=== PATIENT | female | born 1980 | race Two or more races ===

== ENCOUNTER 2018-08-16 15:30 | Emergency (ER) | payer OTHER ==
[2018-08-16] MEDS ORDERED: Ketorolac 30 MG/ML SDV IVPUSH ONE (16:50)
[2018-08-16] MEDS ORDERED: Sodium Chloride 0.9% 1,000 ML IV ONE (16:50)
--- NOTE | 2018-08-16 16:52 | EDM.PDOC ---
ED HPI GENERAL MEDICAL PROBLEM - General Chief Complaint: Gastrointestinal Problem Stated Complaint: SICK Time Seen by Provider: 08/16/18 16:51 Source of Information: Reports: Patient - History of Present Illness INITIAL COMMENTS - FREE TEXT/NARRATIVE: HISTORY AND PHYSICAL: History of present illness: Patient with abdominal pain and loose stools since returning from [place] 2 weeks prior, Patient states abdominal pain is resolved and she has to be at work in less than 30 minutes she is working nights she does not want to have a full workup she is willing to provide a stool sample and give prophylactic treatment for loose stools and redirected she states she'll return if symptoms persist or worsen however she is refusing serum lab and imaging that is Review of systems: As per history of present illness and below otherwise all systems reviewed and negative. Past medical history: As per history of present illness and as reviewed below otherwise noncontributory. Surgical history: As per history of present illness and as reviewed below otherwise noncontributory. Social history: No reported history of drug or alcohol abuse. Family history: As per history of present illness and as reviewed below otherwise noncontributory. Physical exam: HEENT: Atraumatic, normocephalic, pupils reactive, negative for conjunctival pallor or scleral icterus, mucous membranes moist, throat clear, neck supple, nontender, trachea midline. Lungs: Clear to auscultation, breath sounds equal bilaterally, chest nontender. Heart: S1S2, regular, negative for clicks, rubs, or JVD. Abdomen: Soft, nondistended, nontender. Negative for masses or hepatosplenomegaly. Negative for costovertebral tenderness. Pelvis: Stable nontender. Genitourinary: Deferred. Rectal: Deferred. Extremities: Atraumatic, negative for cords or calf pain. Neurovascular unremarkable. Neuro: Awake, alert, oriented. Cranial nerves II through XII unremarkable. Cerebellum unremarkable. Motor and sensory unremarkable throughout. Exam nonfocal. Diagnostics: [CBC CMP UA lipase hCG-refused by patient Stool culture C. difficile O&P guaiac--- patient did allow the stool workup ] Patient refused any imaging Therapeutics: [ saline bolus-patient refused saline bolus Cipro Flagyl ] Impression: [ gastroenteritis ] Definitive disposition and diagnosis as appropriate pending reevaluation and review of above. - Related Data Allergies Allergy/AdvReac Type Severity Reaction Status Date / Time No Known Allergies Allergy Verified 08/16/18 15:39 Home Meds: Home Meds . [No Known Home Meds] 08/16/18 [History] Past Medical History - Past Health History Medical/Surgical History: Denies Medical/Surgical History - Infectious Disease History Infectious Disease History: Reports: Chicken Pox Social & Family History - Family History Family Medical History: Noncontributory - Tobacco Use Smoking Status *Q: Never Smoker - Recreational Drug Use Recreational Drug Use: No ED ROS GENERAL - Review of Systems Review Of Systems: See Below ED EXAM, GENERAL - Physical Exam Exam: See Below Course - Vital Signs Last Recorded V/S: Last Vital Signs Temp 97.3 F 08/16/18 15:39 Pulse 63 08/16/18 15:39 Resp 18 08/16/18 15:39 BP 111/71 08/16/18 15:39 Pulse Ox 98 08/16/18 15:39 - Orders/Labs/Meds Orders: Active Orders 24 hr Category Date Time Status Abdomen Pelvis w Cont [CT] Stat Exams 08/16/18 16:50 Ordered CBC WITH AUTO DIFF [HEME] Stat Lab 08/16/18 16:49 Ordered CDIFF TOX A+B [OP] Stat Lab 08/16/18 16:49 Ordered COMPREHENSIVE METABOLIC PN,CMP [CHEM] Stat Lab 08/16/18 16:49 Ordered CULTURE STOOL + CAMPY+SHIGATOX [RM] Stat Lab 08/16/18 16:49 Ordered Guaiac [OCCULT BLOOD DIAGNOSTIC] [OP] Stat Lab 08/16/18 16:49 Ordered HCG QUALITATIVE,URINE [URCHEM] Stat Lab 08/16/18 16:50 Ordered LIPASE [CHEM] Stat Lab 08/16/18 16:49 Ordered OVA & PARASITES BY IMMUNOASSAY [MREF] Stat Lab 08/16/18 16:49 Ordered UA RFX FERNANDO AND CULT IF INDIC [URIN] Stat Lab 08/16/18 16:49 Ordered Sodium Chloride 0.9% [Normal Saline] 1,000 ml Med 08/16/18 16:50 Active IV STAT Isolation [COMM] Stat Oth 08/16/18 16:50 Ordered Medication Orders Sodium Chloride (Normal Saline) 1,000 mls @ 999 mls/hr IV STAT ONE Stop: 08/16/18 17:50 Meds: Medications Generic Name Dose Route Start Last Admin Trade Name Freq PRN Reason Stop Dose Admin Sodium Chloride 1,000 mls @ 999 mls/hr 08/16/18 16:50 Normal Saline IV 08/16/18 17:50 STAT ONE Discontinued Medications Generic Name Dose Route Start Last Admin Trade Name Roseann PRN Reason Stop Dose Admin Ketorolac Tromethamine 30 mg 08/16/18 16:50 Toradol IVPUSH 08/16/18 16:51 ONETIME ONE Departure - Departure Time of Disposition: 17:07 Disposition: Home, Self-Care 01 Condition: Good Clinical Impression: Gastroenteritis - Discharge Information Referrals: PCP,None [Primary Care Provider] - Forms: ED Department Discharge Additional Instructions: The following information is given to patients seen in the emergency department who are being discharged to home. This information is to outline your options for follow-up care. We provide all patients seen in our emergency department with a follow-up referral. The need for follow-up, as well as the timing and circumstances, are variable depending upon the specifics of your emergency department visit. If you don't have a primary care physician on staff, we will provide you with a referral. We always advise you to contact your personal physician following an emergency department visit to inform them of the circumstance of the visit and for follow-up with them and/or the need for any referrals to a consulting specialist. The emergency department will also refer you to a specialist when appropriate. This referral assures that you have the opportunity for follow-up care with a specialist. All of these measure are taken in an effort to provide you with optimal care, which includes your follow-up. Under all circumstances we always encourage you to contact your private physician who remains a resource for coordinating your care. When calling for follow-up care, please make the office aware that this follow-up is from your recent emergency room visit. If for any reason you are refused follow-up, please contact the [facility] emergency department at and asked to speak to the emergency department charge nurse. - My Orders Last 24 Hours: My Active Orders 08/16/18 16:49 CBC WITH AUTO DIFF [HEME] Stat CDIFF TOX A+B [OP] Stat COMPREHENSIVE METABOLIC PN,CMP [CHEM] Stat CULTURE STOOL + CAMPY+SHIGATOX [RM] Stat Guaiac [OCCULT BLOOD DIAGNOSTIC] [OP] Stat LIPASE [CHEM] Stat OVA & PARASITES BY IMMUNOASSAY [MREF] Stat UA RFX FERNANDO AND CULT IF INDIC [URIN] Stat 08/16/18 16:50 Abdomen Pelvis w Cont [CT] Stat HCG QUALITATIVE,URINE [URCHEM] Stat Sodium Chloride 0.9% [Normal Saline] 1,000 ml IV STAT Isolation [COMM] Stat - Assessment/Plan Last 24 Hours: My Active Orders 08/16/18 16:49 CBC WITH AUTO DIFF [HEME] Stat CDIFF TOX A+B [OP] Stat COMPREHENSIVE METABOLIC PN,CMP [CHEM] Stat CULTURE STOOL + CAMPY+SHIGATOX [RM] Stat Guaiac [OCCULT BLOOD DIAGNOSTIC] [OP] Stat LIPASE [CHEM] Stat OVA & PARASITES BY IMMUNOASSAY [MREF] Stat UA RFX FERNANDO AND CULT IF INDIC [URIN] Stat 08/16/18 16:50 Abdomen Pelvis w Cont [CT] Stat HCG QUALITATIVE,URINE [URCHEM] Stat Sodium Chloride 0.9% [Normal Saline] 1,000 ml IV STAT Isolation [COMM] Stat
== END 2018-08-16 17:24 | disposition home or self-care (01) ==
LOC: MW.ED 15:30
DX: K52.9 Noninfective gastroenteritis and colitis, unspecified (principal)
CPT/HCPCS: 99283; 99284